=== PATIENT | male | born 1975 | race Caucasian/White ===

== ENCOUNTER 2023-04-22 20:30 | Emergency (ER) | payer MEDICAID ==
[~2023-04-22] VITALS: Ht 165.1 cm; Wt 68.0 kg
[2023-04-22 21:03] VITALS: BP 105/69; TEMP 97.4; O2SAT 98
[2023-04-22] MEDS: KETOROLAC 30MG/ML VIAL IM ONE (22:13)
[2023-04-22] MEDS ORDERED: IBUP-2030 MT (23:52)
[2023-04-23] MEDS: CYCLOBENZAPRINE 10MG TABLET PO ONE (00:30)
[2023-04-23] MEDS: ACETAMINOPHEN 325MG TABLET PO ONE (00:47)
[2023-04-23 00:53] VITALS: PULSE 57; RESP 12
== END 2023-04-23 00:55 | disposition home or self-care (01) ==
LOC: ER 20:30
DX: R51.9 Headache, unspecified (principal); M54.2 Cervicalgia; M54.50 Low back pain, unspecified; V49.49XA Driver injured in collision with other motor vehicles in traffic accident, initial encounter; Y93.89 Activity, other specified; Y92.89 Other specified places as the place of occurrence of the external cause; Y99.8 Other external cause status
CPT/HCPCS: 99285; 70450; 73080; 73590; 72125; 72131; 96372; J1885